=== PATIENT | female | born 1965 | race Hispanic/Latino ===

== ENCOUNTER 2024-10-06 11:35 | Inpatient (IN) | payer OTHER ==
[~2024-10-06] VITALS: Ht 162.6 cm; Wt 54.9 kg
[~2024-10-06 11:35] MED LIST: ONDANSETRON ODT4 MG PO
[2024-10-06 11:40] VITALS: TEMP 98.1
[2024-10-06] MEDS: SODIUM CHLORIDE 0.9% 1000ML 1,000 ML IV ONE (12:19)
[2024-10-06] MEDS: FAMOTIDINE 20 MG/2 ML VIAL IV STA (12:19)
[2024-10-06] MEDS ORDERED: IOPAMIDOL 370 MG/ML 100 ML INFUS..BTL INJ ONE (12:30)
[2024-10-06] MEDS: TETANUS/DIPHTHERIA TOX ADULT 0.5 ML SYR IM ONE (13:07)
[2024-10-06] MEDS: SODIUM CHLORIDE 0.9% 1000ML 1,000 ML IV SCH (15:07)
[2024-10-06 15:21] VITALS: PULSE 86; RESP 16
[2024-10-06 17:17] VITALS: BP 134/75; PULSE 72; RESP 18; TEMP 99.6; O2SAT 100
[2024-10-06 18:20] VITALS: BP_SYST 132; BP_SYST 134; BP_DIAS 74; BP_DIAS 75; PULSE 72; PULSE 74; RESP 18; TEMP 100.3; O2SAT 100
[2024-10-06] MEDS: ACETAMINOPHEN 325 MG TAB PO PRN (18:47)
[2024-10-06 19:41] VITALS: BP 103/58; PULSE 83; RESP 17; TEMP 98.2; O2SAT 100
[2024-10-06] MEDS ORDERED: MULTI-VITAMIN1 EACH PO (20:17)
[2024-10-06] MEDS ORDERED: ATORVASTATIN CA20 MG PO (20:17)
[2024-10-06] MEDS: LACTATED RINGER'S 1,000 ML INJ SCH (20:56)
[2024-10-06] MEDS: HYDROCODONE/APAP 5MG-325MG TAB PO PRN (21:25)
[2024-10-06] MEDS: ZOLPIDEM TARTRATE 5 MG TAB PO PRN (22:00)
[2024-10-06 22:11] LABS: BASOPHILS % 0.5 % (0.0-1.0); EOSINOPHILS % 0.2 % (0.0-6.0); LYMPHOCYTES % 26.2 % (18.0-39.1); MONOCYTES % 4.3 % (4.4-11.3); NEUTROPHILS % 68.4 % (38.7-80.0); RED CELL DISTRIBUTION WIDTH 13.5 % (11.7-14.4)
[2024-10-06 22:26] LABS: EST GLOMERULAR FILTRATION RATE 102.0 ML/MIN (>=60)
[2024-10-06 23:27] VITALS: BP 127/78; PULSE 81; RESP 17; TEMP 97.5; O2SAT 100
[2024-10-07] VITALS (10 sets, daily range): BP systolic 102–124; BP diastolic 58–77; PULSE 63–87; RESP 16–20; TEMP 97.4–98.9; O2SAT 94–100
[2024-10-07 06:11] LABS: BASOPHILS % 0.7 % (0.0-1.0); EOSINOPHILS % 0.7 % (0.0-6.0); LYMPHOCYTES % 25.2 % (18.0-39.1); MONOCYTES % 5.1 % (4.4-11.3); NEUTROPHILS % 67.7 % (38.7-80.0); RED CELL DISTRIBUTION WIDTH 13.6 % (11.7-14.4)
[2024-10-07 06:33] LABS: EST GLOMERULAR FILTRATION RATE 103.0 ML/MIN (>=60)
[2024-10-07] MEDS: ONDANSETRON HCL INJ 2MG/ML 2ML 2 MG/ML VIAL IV PRN (12:58)
[2024-10-07] MEDS: IBUPROFEN 600 MG TAB PO ONE (14:25)
[2024-10-07] MEDS: ALBUTEROL/IPRATROPIUM 3 ML NEB NEB PRN (19:40)
[2024-10-08] VITALS (10 sets, daily range): BP systolic 95–114; BP diastolic 56–76; PULSE 60–78; RESP 16–18; TEMP 97.8–98.7; O2SAT 96–100
[2024-10-08] MEDS: IBUPROFEN 600 MG TAB PO ONE (12:53)
[2024-10-08] MEDS: POTASSIUM CHLORIDE 20 MEQ TAB CR PO ONE (12:53)
[2024-10-08] MEDS: LACTATED RINGER'S 1,000 ML INJ ONE (14:36)
[2024-10-09] VITALS (7 sets, daily range): BP systolic 99–122; BP diastolic 62–77; PULSE 72–81; RESP 17–18; TEMP 98.9–101.8; O2SAT 95–100
[2024-10-09 07:26] LABS: BASOPHILS % 0.6 % (0.0-1.0); EOSINOPHILS % 1.3 % (0.0-6.0); LYMPHOCYTES % 24.5 % (18.0-39.1); MONOCYTES % 5.0 % (4.4-11.3); NEUTROPHILS % 68.2 % (38.7-80.0); RED CELL DISTRIBUTION WIDTH 13.7 % (11.7-14.4)
[2024-10-09 07:48] LABS: EST GLOMERULAR FILTRATION RATE 103.0 ML/MIN (>=60)
[2024-10-10 06:16] LABS: BASOPHILS % 0.8 % (0.0-1.0); EOSINOPHILS % 0.7 % (0.0-6.0); LYMPHOCYTES % 27.4 % (18.0-39.1); MONOCYTES % 5.1 % (4.4-11.3); NEUTROPHILS % 65.4 % (38.7-80.0); RED CELL DISTRIBUTION WIDTH 13.4 % (11.7-14.4); RETICULOCYTE % 2.0 % (0.8-2.2)
[2024-10-10 06:50] LABS: % IRON SATURATION 10.0 % (15-50); EST GLOMERULAR FILTRATION RATE 97.0 ML/MIN (>=60); PHOSPHORUS 3.1 MG/DL (2.3-4.7)
[2024-10-10 07:28] VITALS: BP 112/66; PULSE 77; RESP 18; TEMP 100.2; O2SAT 99
[2024-10-10 07:44] VITALS: PULSE 84; RESP 18; O2SAT 98
[2024-10-10] MEDS: ACETAMIN/BUTALBITAL/CAFFEINE TAB PO PRN (08:35)
[2024-10-10 08:41] VITALS: BP 112/66; PULSE 84; RESP 18; TEMP 100.2; O2SAT 98
[2024-10-10] MEDS: IRON SUCROSE 100 MG in SODIUM CHLORIDE 0.9% 100 ML IV SCH (11:07)
[2024-10-10] MEDS: CYANOCOBALAMIN INJ 1,000 MCG/ML VIAL IM SCH (11:08)
[2024-10-10 11:21] VITALS: BP 101/68; PULSE 79; RESP 18; TEMP 98.6; O2SAT 100
[2024-10-10] MEDS ORDERED: VITAMIN C 500500 MG PO (11:37)
[2024-10-10] MEDS ORDERED: VITAMIN B-121000 MCG PO (11:37)
[2024-10-10] MEDS ORDERED: ACETAMINOPHEN325 M1 PO (11:37)
[2024-10-10] MEDS ORDERED: CEFUROXIME500 MG PO (11:37)
[2024-10-10] MEDS ORDERED: IRON325 M1 PO (11:37)
[2024-10-10] MEDS ORDERED: FIORICET 50-301 EACH PO (11:37)
[2024-10-10 11:39] VITALS: PULSE 78; RESP 18; O2SAT 97
[2024-10-10 15:04] LABS: LEGIONELLA ANTGEN (U) Negative (Negative)
[2024-10-10 15:38] VITALS: BP 99/63; PULSE 68; RESP 18; TEMP 98.9; O2SAT 99
[2024-10-11 06:06] LABS: MYCOPLASMA PNEUMO IGG 322 U/mL (0-99); MYCOPLASMA PNEUMO IGM <770 U/mL (0-769)
== END 2024-10-10 18:00 | disposition home or self-care (01) | DRG 195 ==
LOC: FSED 11:41 → ERHOLD 13:44 → MED/SURG3 17:11
PROVIDERS: ADMIT Internal Medicine; ATTEND Internal Medicine
DX: J18.9 Pneumonia, unspecified organism (principal); D50.9 Iron deficiency anemia, unspecified; J06.9 Acute upper respiratory infection, unspecified; K76.0 Fatty (change of) liver, not elsewhere classified; G43.909 Migraine, unspecified, not intractable, without status migrainosus; R11.2 Nausea with vomiting, unspecified; D51.9 Vitamin B12 deficiency anemia, unspecified; R53.83 Other fatigue; E87.6 Hypokalemia; R19.7 Diarrhea, unspecified; Z86.73 Personal history of transient ischemic attack (TIA), and cerebral infarction without residual deficits; Z90.710 Acquired absence of both cervix and uterus; Z90.10 Acquired absence of unspecified breast and nipple
CPT/HCPCS: 36415; 70551; 71046; 74177; 80048; 80053; 81003; 82607; 82728; 82746; 83540; 83735; 84100; 84466; 85025; 85045; 86738; 87040; 87449; 90714; 93306; 94799; 99283; J0696; J1308; J1756; J2405; J3420; J7030; J7050; Q9967